=== PATIENT | male | born 1950 | race Asian ===

== ENCOUNTER 2024-09-22 03:34 | Emergency (ER) | payer SELFPAY ==
[2024-09-22 03:37] VITALS: BP 160/91
[2024-09-22 03:41] VITALS: BP 160/91
[2024-09-22 03:46] VITALS: BMI 21.4
[2024-09-22 04:00] VITALS: BP 172/75
[2024-09-22 04:14] LABS: % Eosinophils 18.8 % (0-6); % Immature Granulocytes 0.2 % (0-0.5); % Lymphocytes 22.1 % (20.5-51.1); % Monocytes 10.5 % (1.7-9.3); % Neutrophils 47.4 % (42.2-75.2); Absolute Basophils 0.1 10^3/uL (0-0.2); Absolute Eosinophils 1.2 10^3/uL (0-0.7); Absolute Lymphocytes 1.4 10^3/uL (1.2-3.4); Absolute Monocytes 0.7 10^3/uL (0.1-0.6); Hematocrit 41.5 % (39.0-52.0); Hemoglobin 13.6 g/dL (13.0-18.0); Mean Corp Hgb Conc. 32.8 g/dL (33.0-37.0); Mean Corpuscular Volume 76.4 fL (80.0-94.0); Mean Platelet Volume 8.9 fL (7.4-10.4); Nucleated Red Blood Cells % 0 % (-); Platelet Count 308 10^3/uL (130-400); Red Blood Cell Count 5.43 10^6/uL (4.70-6.10); Red Cell Dist. Width 13.8 % (11.5-14.5); White Blood Cell Count 6.3 10^3/uL (4.8-10.8)
--- NOTE | 2024-09-22 04:24 | ED.GENMED ---
History of Present Illness
General
Chief Complaint: Cough
Source: patient
Exam Limitations: none
Time Seen by Provider: 09/22/24 03:48
Nursing documentation reviewed up to this point in time: agreed with
History of Present Illness
History of Present Illness:
Patient with history of recent CVA, currently at [facility], on aspirin and Plavix, presents to ED after multiple episodes of cough, associated with bloody phlegm. Denies chest pain or shortness of breath. Denies fever or chills. Denies nausea or
vomiting. Denies dizziness or weakness. Denies previous history of similar symptoms.
Review of Systems
Review of Systems
Allergies reviewed?: Yes
All Other Systems: ROS reviewed and negative except as documented in HPI and ROS
Constitutional: Reports no symptoms; Denies fever
Respiratory: Reports cough and hemoptysis
ABD/GI: Reports no symptoms; Denies vomiting or diarrhea
Musculoskeletal: Reports no symptoms
Skin: Reports no symptoms
Neurological: Reports no symptoms
Phy Exam
Physical Exam
Physical Exam:
Physical Exam
General: no apparent distress, not acutely ill. afebrile.
Head: nc/at. eomi
Neck: supple. normal range of motion.
Heart: s1/s2 regular rate and rhythm
Lungs: no acute respiratory distress. clear bilaterally
Abdomen: normal bowel sounds. not tender.
Neuro: alert and oriented x 3. no focal neurological deficits
Skin: no rash
Psychiatric: well kept. interactive and cooperative
Extremities: no edema. no calf tenderness.
Course
Orders/Labs/Results
Orders:
Orders
09/22/24 04:01
CT Chest With Iv Contrast Urgent
Comment:
Reason For Exam: Hemoptysis
09/22/24 04:06
Complete Blood Count/With Diff Urgent
Comprehensive Metabolic Panel Urgent
Magnesium Urgent
PTT Urgent
Prothrombin Time Urgent
09/22/24 06:21
Azithromycin [Zithromax] 500 mg PO NOW STA
Abnormal Lab Results
09/22/24
04:06
MCV 76.4 L fL
(80.0-94.0)
MCH 25.0 L pg
(27.0-31.0)
MCHC 32.8 L g/dL
(33.0-37.0)
Absolute Monos (auto) 0.7 H 10^3/uL
(0.1-0.6)
Absolute Eos (auto) 1.2 H 10^3/uL
(0-0.7)
Monocytes % 10.5 H %
(1.7-9.3)
Eosinophils % 18.8 H %
(0-6)
BUN 21 H mg/dl
(9-20)
Glucose 149 H mg/dl
(70-99)
Calcium 10.9 H mg/dl
(8.4-10.2)
ALT 93 H U/L
(0-50)
Alkaline Phosphatase 152 H U/L
(38-126)
Total Protein 8.3 H g/dl
(6.3-8.2)
09/22/24 04:06
09/22/24 04:06
Vital Signs
Initial and Last Documented VS:
Initial Vital Signs
BP
160/91
09/22/24 03:37
Last Documented Vital Signs
Temp Pulse Resp BP Pulse Ox
97.5 F 77 21 135/78 99
09/22/24 03:41 09/22/24 06:00 09/22/24 06:00 09/22/24 06:00 09/22/24 06:00
MDM/Problems Addressed
MDM/Problems Addressed:
Patient without any further episodes of hemoptysis during observation in the ED and remains hemodynamically stable.
H&H noted. CT chest without any acute findings.
Discussed with on-call neurology, Dr. Padilla. Recommends withholding Plavix x 24 hours, with plan to resume without any further significant bleeding. Patient is to continue aspirin daily however.
*Critical Care Note
Total Time (30-74mins, 75-104mins- exclusive of procedures): Not Applicable
ED Attending Note
-
Portions of this chart may have been created with voice recognition software.� Occasional wrong word or��sound alike� substitutions may have occurred due to the inherent limitations of voice recognition software.
Discharge Plan
Departure
Patient Disposition: Acute Rehab Facility
Date of Disposition: 09/22/24
Time of Disposition: 06:20
Discharge Problem:
Hemoptysis
Instructions: Coughing up blood
Prescriptions:
New
azithromycin [Zithromax] 250 mg tablet
250 mg PO DAILY 4 Days Qty: 4 0RF
No Action
nifedipine [Procardia XL] 30 mg Tablet Extended Release 24hr
30 mg PO DAILY
metformin [Glucophage] 500 mg Tablet
500 mg PO BID
polyethylene glycol 3350 17 gram Powder In Packet
17 g PO DAILY
atorvastatin 10 mg Tablet
10 mg PO DAILY
clopidogrel [Plavix] 75 mg Tablet
75 mg PO DAILY
guaifenesin [Robitussin] 100 mg/5 mL Liquid
200 mg PO Q4H PRN (Reason: cough)
Rx Instructions:
for up to 10 days
omeprazole 20 mg Capsule,Delayed Release(Dr/Ec)
20 mg PO DAILY
aspirin 81 mg Tablet,Chewable
81 mg PO DAILY
cholecalciferol (vitamin D3) 25 mcg (1,000 unit) Capsule
25 mcg PO DAILY
Referrals:
UNKNOWN - PT DOES,NOT KNOW [Family Provider]
Activity Restrictions/Additional Instructions:
As discussed, you are being discharged back to to [facility] for continual evaluation and treatment. Please consider return to ED with worsening symptoms.
Interventions
Interventions:
*Risk Screen - Suicide Last Done: 09/22/24 03:41
*General Assessment Last Done: 09/22/24 03:41
*Neglect/Abuse Screening Last Done: 09/22/24 03:41
*ED- Fall Risk Assessment Last Done: 09/22/24 03:41
*ED COVID-19 Vaccine History Last Done: 09/22/24 03:41
*Nursing Disposition Last Done: 09/22/24 07:02
ED- Pulmonary Assessment Last Done: 09/22/24 04:06
Discharge Date and Time
Discharge Date/Time: 09/22/24 07:04
Print Language: BULGARIAN
[2024-09-22 04:25] LABS: INR 0.96; PT 13.1 Sec (11.4-14.6)
[2024-09-22 04:27] LABS: ALT (SGPT) 93 U/L (0-50); AST (SGOT) 24 U/L (17-59); Albumin 4.5 g/dl (3.5-5.0); Alkaline Phosphatase 152 U/L (38-126); Blood Urea Nitrogen 21 mg/dl (9-20); Calcium 10.9 mg/dl (8.4-10.2); Carbon Dioxide 26 mmol/L (22-30); Chloride 107 mmol/L (98-107); Estimated Creatinine Clearance 63 ml/min; Glucose 149 mg/dl (70-99); Magnesium 2.2 mg/dl (1.6-2.3); Potassium 4.3 mmol/L (3.5-5.1); Sodium 141 mmol/L (135-145); Total Bilirubin 0.7 mg/dl (0.2-1.3); Total Protein 8.3 g/dl (6.3-8.2); eGFR > 60.00
[2024-09-22 05:00] VITALS: BP 138/70
[2024-09-22 06:00] VITALS: BP 135/78
[2024-09-22] MEDS: ZITHROMAX 500 MG PO (06:35)
== END 2024-09-22 07:04 ==
LOC: EMR 03:34
PROVIDERS: EMERGENCY PHYSICIAN Emergency Medicine
DX: R04.2 Hemoptysis (principal); I10 Essential (primary) hypertension; D64.9 Anemia, unspecified; E11.36 Type 2 diabetes mellitus with diabetic cataract; Z79.82 Long term (current) use of aspirin; Z79.02 Long term (current) use of antithrombotics/antiplatelets; Z79.4 Long term (current) use of insulin; Z85.46 Personal history of malignant neoplasm of prostate; Z86.73 Personal history of transient ischemic attack (TIA), and cerebral infarction without residual deficits
CPT/HCPCS: 99284; 71260; 80053; 83735; 85025; 85610; 85730; Q9967

== ENCOUNTER 2024-09-26 07:39 | Outpatient (RCR) | payer MEDICARE, SELFPAY | END 2024-09-26 23:59 | disposition home or self-care (01) | LOC: RPT 07:39 | PROVIDERS: ATTENDING PHYSICIAN Physical Medicine & Rehabilitation; FAMILY PHYSICIAN Internal Medicine | DX: I69.354 Hemiplegia and hemiparesis following cerebral infarction affecting left non-dominant side (principal); I69.392 Facial weakness following cerebral infarction; I69.328 Other speech and language deficits following cerebral infarction; Z73.6 Limitation of activities due to disability; I69.318 Other symptoms and signs involving cognitive functions following cerebral infarction; I69.310 Attention and concentration deficit following cerebral infarction | CPT/HCPCS: 96125; 97110; 97112; 97129; 97130; 97163; 97167; 97530; 97535; 97537 ==

== ENCOUNTER 2024-11-08 15:15 | Outpatient (RCR) | payer MEDICARE, SELFPAY | END 2024-11-08 23:59 | disposition home or self-care (01) | LOC: RPT 15:15 | PROVIDERS: ATTENDING PHYSICIAN Physical Medicine & Rehabilitation; FAMILY PHYSICIAN Internal Medicine | DX: I69.354 Hemiplegia and hemiparesis following cerebral infarction affecting left non-dominant side (principal); I69.392 Facial weakness following cerebral infarction; I69.328 Other speech and language deficits following cerebral infarction; Z73.6 Limitation of activities due to disability; I69.318 Other symptoms and signs involving cognitive functions following cerebral infarction; I69.310 Attention and concentration deficit following cerebral infarction | CPT/HCPCS: 97110; 97112; 97116; 97129; 97130; 97530; 97537 ==

== ENCOUNTER 2024-12-06 14:22 | Outpatient (RCR) | payer MEDICARE, SELFPAY | END 2024-12-06 23:59 | disposition home or self-care (01) | LOC: RPT 14:22 | PROVIDERS: ATTENDING PHYSICIAN Physical Medicine & Rehabilitation; FAMILY PHYSICIAN Internal Medicine | DX: I69.354 Hemiplegia and hemiparesis following cerebral infarction affecting left non-dominant side (principal); I69.392 Facial weakness following cerebral infarction; I69.328 Other speech and language deficits following cerebral infarction; Z73.6 Limitation of activities due to disability; I69.318 Other symptoms and signs involving cognitive functions following cerebral infarction; I69.310 Attention and concentration deficit following cerebral infarction | CPT/HCPCS: 97110; 97112; 97116; 97129; 97130; 97140; 97530; 97535 ==

== ENCOUNTER 2025-01-07 15:44 | Outpatient (RCR) | payer MEDICARE, SELFPAY | END 2025-01-07 23:59 | disposition home or self-care (01) | LOC: RPT 15:44 | PROVIDERS: ATTENDING PHYSICIAN Physical Medicine & Rehabilitation; FAMILY PHYSICIAN Internal Medicine | DX: I69.354 Hemiplegia and hemiparesis following cerebral infarction affecting left non-dominant side (principal); I69.392 Facial weakness following cerebral infarction; I69.328 Other speech and language deficits following cerebral infarction; Z73.6 Limitation of activities due to disability; I69.318 Other symptoms and signs involving cognitive functions following cerebral infarction; I69.310 Attention and concentration deficit following cerebral infarction | CPT/HCPCS: 97110; 97112; 97116; 97129; 97130; 97140; 97530; 97537 ==

== ENCOUNTER 2025-02-06 08:06 | Outpatient (RCR) | payer MEDICARE, SELFPAY | END 2025-02-06 23:59 | disposition home or self-care (01) | LOC: RPT 08:06 | PROVIDERS: ATTENDING PHYSICIAN Physical Medicine & Rehabilitation; FAMILY PHYSICIAN Internal Medicine | DX: I69.354 Hemiplegia and hemiparesis following cerebral infarction affecting left non-dominant side (principal); I69.392 Facial weakness following cerebral infarction; I69.328 Other speech and language deficits following cerebral infarction; Z73.6 Limitation of activities due to disability; I69.318 Other symptoms and signs involving cognitive functions following cerebral infarction; I69.310 Attention and concentration deficit following cerebral infarction | CPT/HCPCS: 97110; 97112; 97129; 97130; 97140; 97530; 97537 ==